=== PATIENT | male | born 2000 | race Two or more races ===

== ENCOUNTER 2024-05-12 05:51 | Emergency (ER) | payer MEDICAID ==
[~2024-05-12] VITALS: Ht 172.7 cm; Wt 90.9 kg
[2024-05-12 07:15] LABS: BASOPHILS % (AUTO) 0.6 % (0-1); EOSINOPHILS % (AUTO) 1.1 % (0-6); HEMATOCRIT 43.3 % (42.0-52.0); HEMOGLOBIN 14.2 g/dl (14.0-17.9); LYMPHOCYTES # (AUTO) 1.3 X10'3 (1.1-4.8); LYMPHOCYTES % (AUTO) 34.6 % (21-51); MEAN CORPUSCULAR HGB CONC 32.9 g/dL (33.0-36.5); MEAN CORPUSCULAR VOLUME 82.2 FL (78-98); MEAN PLATELET VOLUME 7.8 FL (7.4-10.4); MONOCYTES # (AUTO) 0.6 X10'3 (0-0.9); MONOCYTES % (AUTO) 16.3 % (2-12); NEUTROPHILS # (AUTO) 1.8 X10'3 (1.8-7.7); NEUTROPHILS % (AUTO) 47.4 % (42-75); PLATELET COUNT 206 X10'3 (140-440); RED BLOOD COUNT 5.27 X10'6 (4.70-6.10); RED CELL DISTRIBUTION WIDTH 17.5 % (11.5-14.5); WHITE BLOOD COUNT 3.8 X10'3 (4.5-11.0)
[2024-05-12 07:30] LABS: URINE AMPHETAMINE SCREEN NEGATIVE (Neg); URINE BARBITUATE SCREEN NEGATIVE (Neg); URINE BENZODIAZEPINES SCREEN NEGATIVE (Neg); URINE CANNABINOID SCREEN NEGATIVE (Neg); URINE COCAINE SCREEN NEGATIVE (Neg); URINE METHADONE SCREEN NEGATIVE (Neg); URINE OPIATE SCREEN NEGATIVE (Neg); URINE PHENCYCLIDINE SCREEN NEGATIVE (Neg)
[2024-05-12 07:35] LABS: ANISOCYTOSIS 1+; PLATELET ESTIMATE NORMAL; TOTAL CELLS COUNTED 100
[2024-05-12 07:42] LABS: ALBUMIN 3.1 G/DL (3.4-5.0); ANION GAP 5 (8-16); BLOOD UREA NITROGEN 12 MG/DL (7-18); BUN/CREATININE RATIO 10.4 (10.0-20.0); CALCIUM 9.2 MG/DL (8.5-10.1); CHLORIDE 104 MMOL/L (99-107); CREATININE 1.15 MG/DL (0.60-1.10); ETHANOL < 10 MG/DL (<10); GLUCOSE 80 MG/DL (70-104); POTASSIUM 4.2 MMOL/L (3.5-5.1); SODIUM 139 MMOL/L (135-145); TOTAL CARBON DIOXIDE 29.9 MMOL/L (24-32); eCRCL 96 ML/MIN; eGFR 78 ML/MIN
[2024-05-12] MEDS ORDERED: PROP10TA10 PO (11:32)
[2024-05-12] MEDS ORDERED: DIVA500T4 PO (11:32)
[2024-05-12] MEDS ORDERED: HALO100A2 IM (11:32)
[2024-05-12] MEDS ORDERED: DOCU-395 PO (11:32)
[2024-05-12] MEDS ORDERED: BENZ1TAB78 PO (11:32)
[2024-05-12] MEDS ORDERED: NA P133E4 RC (11:55)
[2024-05-12] MEDS ORDERED: BISA10SU60 RC (11:55)
[2024-05-12] MEDS ORDERED: BISA-155 PO (11:55)
[2024-05-12] MEDS ORDERED: [UNRECOGNIZED DRUG - CODE] TP (11:55)
[2024-05-12] MEDS ORDERED: NALO4SPR3 (11:55)
[2024-05-12] MEDS ORDERED: MAGN24002 PO (11:55)
[2024-05-12] MEDS ORDERED: LEVO25TA2 PO (11:55)
[2024-05-12] MEDS ORDERED: MULT-381 PO (11:55)
[2024-05-12] MEDS ORDERED: TRAZ-251 PO (11:55)
[2024-05-12] MEDS ORDERED: bisacodyl 10mg suppository rectal RC PRN (13:30)
[2024-05-12] MEDS ORDERED: magnesium hydroxide 30ml (MOM) UD suspension PO PRN (13:30)
[2024-05-12] MEDS ORDERED: bisacodyl 5mg tablet.DR PO PRN (13:30)
[2024-05-12] MEDS ORDERED: non-formulary drug (Na Phos,M-B/Na Phos,Di-Ba* (Fleet's Enema*) 1 BOTTLE) RC PRN (13:30)
[2024-05-12] MEDS: divalproex sod 250mg ER (24-hour) tablet PO SCH (20:31)
[2024-05-12] MEDS: docusate sod 250mg capsule PO SCH (20:32)
[2024-05-12] MEDS: benztropine 1mg tablet PO SCH (20:32)
[2024-05-12] MEDS: traZODone 50mg tablet PO SCH (20:32)
[2024-05-12] MEDS: propranolol 10mg tablet PO SCH (20:32)
[2024-05-12] MEDS ORDERED: traZODone 50mg tablet PO SCH (21:00)
[2024-05-13 06:03] VITALS: BP 132/78; PULSE 74; RESP 16; O2SAT 100
[2024-05-13 07:32] LABS: BILIRUBIN,URINE NEGATIVE (Neg); CLARITY,URINE CLEAR (Clear); COLOR,URINE YELLOW (Yellow); GLUCOSE, URINE NEGATIVE (Neg); KETONES,URINE NEGATIVE (Neg); LEUKOCYTE ESTERASE ,URINE NEGATIVE (Neg); NITRITES, URINE NEGATIVE (Neg); OCCULT BLOOD,URINE NEGATIVE (Neg); PH,URINE 8.5 (4.8-8.0); PROTEIN,URINE NEGATIVE (Neg); UROBILINOGEN,URINE 0.2 E.U/dL (0.2-1.0)
[2024-05-13 07:36] LABS: UA COLLECTION TYPE FOLEY CATH
[2024-05-13] MEDS: multivitamins, therapeutics tablet PO SCH (08:00)
[2024-05-13] MEDS: levoTHYROXINE 25mcg tablet PO SCH (08:00)
[2024-05-13 14:58] VITALS: TEMP 96.8
[2024-06-09] MEDS ORDERED: haloperidol decanoate***LONG-ACTING*** 100mg/ml **IM only** inj. IM SCH (08:00)
== END 2024-05-13 15:07 ==
LOC: ER 05:53
DX: R44.0 Auditory hallucinations (principal); Z20.822 Contact with and (suspected) exposure to COVID-19; R45.6 Violent behavior
CPT/HCPCS: 36415; 80048; 80305; 80320; 81003; 85007; 85025; 87811; 99285; C2617